=== PATIENT | female | born 1990 | race Caucasian/White ===

== ENCOUNTER 2019-01-20 16:37 | Emergency (ER) | payer MEDICAID ==
[~2019-01-20] VITALS: Ht 154.9 cm; Wt 55.3 kg
[2019-01-20 16:45] VITALS: BP_SYST 128
[2019-01-20] MEDS ORDERED: LIDOCAINE 1% 10 MG/ML, 20 ML MDV INJ ONE (17:15)
[2019-01-20] MEDS ORDERED: DIPH-TET-PERTUS Vaccine 0.5 ML VIAL (ADACEL) IM ONE (17:15)
[2019-01-20] MEDS ORDERED: LIDOCAINE 1%, 20 ML MDV 20 ML ONE (17:17)
[2019-01-20] MEDS ORDERED: BACITRACIN 1 GM OINT TP ONE (17:45)
[2019-01-20 18:10] VITALS: BP_SYST 127
== END 2019-01-20 18:10 | disposition home or self-care (01) ==
LOC: SED 16:37
DX: S61.211A Laceration without foreign body of left index finger without damage to nail, initial encounter (principal); R03.0 Elevated blood-pressure reading, without diagnosis of hypertension; W26.8XXA Contact with other sharp object(s), not elsewhere classified, initial encounter; X58.XXXA Exposure to other specified factors, initial encounter; Y93.89 Activity, other specified; Y92.89 Other specified places as the place of occurrence of the external cause; Y99.8 Other external cause status
CPT/HCPCS: 12001; 73140; 90471; 90715; 99283; J2001